=== PATIENT | female | born 1965 | race Caucasian/White ===

== ENCOUNTER → 2017-01-19 | Outpatient (CLI) | payer BC ==
[~2017-01-19] MED LIST: CETI10TA10 PO; CITA20TA9 PO; FLUT0.0529 NAE; IBUP-1277 PO; PRM625 PO; SULF-183 PO; TRAZ-119 PO
--- NOTE | 2017-01-19 07:56 | MAMMOGRAPHY REPORT ---
BILATERAL DIGITAL SCREENING MAMMOGRAM TOMOSYNTHESIS WITH CAD: 01/19/2017 CLINICAL HISTORY: Routine screening. Patient has no complaints. TECHNIQUE: Breast tomosynthesis in addition to standard 2D mammography was performed. Current study was also evaluated with a Computer Aided Detection (CAD) system. COMPARISON: Comparison is made to exams dated: 01/14/2016 mammogram - [facility], 01/19/2011 mammogram, 01/01/2010 mammogram, and 12/23/2009 mammogram. BREAST COMPOSITION: There are scattered areas of fibroglandular density in both breasts. FINDINGS: No suspicious masses, calcifications, or areas of architectural distortion are noted in e ither breast. There has been no significant interval change compared to prior exams. IMPRESSION: ACR BI-RADS CATEGORY 1: NEGATIVE There is no mammographic evidence of malignancy. A 1 year screening mammogram is recommended. The p atient will receive written notification of the results. Approximately 10% of breast cancers are not detected with mammography. A negative mammographic repor t should not delay biopsy if a clinically suggestive mass is present. Tata Harper M.D. ah/:01/19/2017 07:37:55 Clinical Pharmacist: Karime Rice, [facility] letter sent: Normal 1/2 BI-RADS Code: ACR BI-RADS Category 1: Negative
== END | disposition home or self-care (01) ==
LOC: C.MAMM 07:04
PROVIDERS: ATTEND Nurse Practitioner Family
DX: Z12.31 Encounter for screening mammogram for malignant neoplasm of breast (principal)

== ENCOUNTER → 2017-07-18 | Outpatient (CLI) | payer BC ==
[~2017-07-18] MED LIST changes: -TRAZ-119 PO; +TRAZ1TAB16 PO
--- NOTE | 2017-07-19 10:23 | POLYSOMNOGRAPH REPORT ---
CLINICAL DATA: A 51-year-old female, height of 62 inches and weight of 201 pounds, referred for evaluation of shortness of breath. Spirometry pre- and post-bronchodilator, lung volumes, and DLCO were performed. She had been a smoker in the past for 25 years. FINDINGS: Pre-bronchodilator spirometry demonstrates very mild small airway obstruction. FVC was 114% of predicted. FEV1 was 102% of predicted. [id number] was 68% of predicted. There was slight improvement in SFB80-91 after inhaled bronchodilator. FVC decreased by 2% to 111% of predicted. FEV1 increased by 1% to 103% of predicted. CBC28-20 improved 17% to 80% of predicted. Lung volumes were normal with the exception of a slight reduction in expiratory reserve volume due to obesity. DLCO was normal at 89% of predicted. IMPRESSION: Very mild small airway obstruction with slight improvement after inhaled bronchodilator, possibly consistent with asthma. Clinical correlation is needed.
== END | disposition home or self-care (01) ==
LOC: C.RC 12:36
PROVIDERS: ATTEND Nurse Practitioner Family
DX: R06.02 Shortness of breath (principal); R53.83 Other fatigue; Z91.09 Other allergy status, other than to drugs and biological substances; G47.9 Sleep disorder, unspecified; G43.109 Migraine with aura, not intractable, without status migrainosus

== ENCOUNTER → 2018-01-23 | Outpatient (CLI) | payer OTHER ==
[~2018-01-23] MED LIST changes: +TRAZ-119 PO; -TRAZ1TAB16 PO
--- NOTE | 2018-01-23 12:51 | MAMMOGRAPHY REPORT ---
BILATERAL DIGITAL SCREENING MAMMOGRAM TOMOSYNTHESIS WITH CAD: 01/23/2018 CLINICAL HISTORY: Routine screening. Patient has no complaints. TECHNIQUE: Breast tomosynthesis in addition to standard 2D mammography was performed. Current study was also evaluated with a Computer Aided Detection (CAD) system. COMPARISON: Comparison is made to exams dated: 01/19/2017 mammogram, 01/14/2016 mammogram - [facility], 01/19/2011 mammogram, 01/01/2010 mammogram, and 12/23/2009 mammogram. BREAST COMPOSITION: There are scattered areas of fibroglandular density in both breasts. FINDINGS: The parenchymal pattern is unchanged. No developing mass, architectural distortion or clus ter of suspicious microcalcifications is seen in either breast. IMPRESSION: ACR BI-RADS CATEGORY 2: BENIGN There is no mammographic evidence of malignancy. A 1 year screening mammogram is recommended. The pa tient will receive written notification of the results. Approximately 10% of breast cancers are not detected with mammography. A negative mammographic report should not delay biopsy if a clinically suggestive mass is present. Kailyn Mcpherson M.D. ay/:01/23/2018 08:38:08 Data Integration Architect: Monica LONG(Gypsy)(Juani), [facility] letter sent: Normal 1/2 BI-RADS Code: ACR BI-RADS Category 2: Benign
== END | disposition home or self-care (01) ==
LOC: C.MAMM 07:39
PROVIDERS: ATTEND Nurse Practitioner Family
DX: Z12.31 Encounter for screening mammogram for malignant neoplasm of breast (principal)